=== PATIENT | female | born 1985 | race Caucasian/White ===

== ENCOUNTER 2017-02-11 07:57 | Inpatient (IN) | payer MEDICAID ==
[~2017-02-11] VITALS: Ht 154.9 cm; Wt 54.4 kg
--- NOTE | ~2017-02-11 | DS ---
PATIENT:NANCY MATTHEW :89 MEDICAL RECORD: [id number] DISCHARGE SUMMARY ADMISSION DATE: 02/11/17 DISCHARGE DATE: 02/13/17 CHIEF COMPLAINT: 1. Abdominal pain, perhaps due to endometriosis. 2. Ileus, resolved. HOSPITAL COURSE: The patient was admitted with abdominal pain. She underwent a small bowel follow-through. It was normal. I have advised the patient to see a recoating machine operator. I think that hysterectomy and bilateral salpingo-oophorectomies may be diagnostic as well as therapeutic in her case. She has had 3 children. She states she does not want to have any more children. I told her that I do not perform hysterectomies and that she would need to see a recoating machine operator for this. She is being dismissed home on Ultram for pain. For the typed portion of this note including past medical and surgical history, allergies, social history as well as current medications, please see the chart. PHYSICAL EXAMINATION: GENERAL: The patient does not appear acutely ill. She does appear chronically ill. The entire physical examination was performed in the presence of a female nurse. HEAD: External ears appear normal. EYES: Extraocular movements are intact. NECK: Trachea is midline. CHEST: No intercostal retractions. PULMONARY: Nonlabored, no stridor. ABDOMEN: Diffusely tender. Really unchanged from her admission status. EXTREMITIES: No peripheral cyanosis. INTEGUMENT: No rash, no ulcerations. BACK: No thoracic kyphosis. LYMPHATIC: No lymphangitic streaking of the exposed extremities. NEUROLOGIC: Nonfocal, no lethargy. The patient answers questions appropriately, moves all extremities well. IMPRESSION: Abdominal pain, perhaps due to endometriosis. PLAN: I would recommend the patient undergo a total abdominal hysterectomy despite her age. TRANSINT:[id number] Voice Confirmation ID: [id number] DOCUMENT ID: [id number] OLIVER ALCANTARA MD CC: [id number] DICTATION DATE: 02/13/171740 MIXER OPERATOR HOT METAL: 02/14/17 023 DIS IN 02/13/17 [facility] [address] [place] [address]
--- NOTE | ~2017-02-11 | HP ---
PATIENT: NANCY MATTHEW MEDICAL RECORD: [id number] ACCOUNT: [id number] LOCATION:D.MS Zhang : 89 ADMISSION DATE: 02/11/17 HISTORY AND PHYSICAL EXAMINATION Addendum DATE OF SERVICE: 02/11/2017 CHIEF COMPLAINT: Pain. HISTORY OF PRESENT ILLNESS: The patient has had numerous laparoscopies for endometriosis. She believes that she has endometriosis again and that this is causing a bowel obstruction. An NG tube was placed. I am going to obtain a small bowel follow through in the morning. Symptoms are severe. Palpation aggravates. Nothing alleviates. Her abdomen is only mildly distended. This is a history and physical addendum. For the typed portion of the history and physical, please see the typed portion in the chart. This will include the patient's past medical and surgical history, allergies, social history, as well as current medications. REVIEW OF SYSTEMS: Positive for pain. Positive for nausea and vomiting. No fever, no chills, no shortness of breath, no chest pain. Positive for anxiety. Review of systems is negative other than as is described above. PHYSICAL EXAMINATION: GENERAL: The patient does appear acutely ill. Also appears chronically ill. VITAL SIGNS: Reviewed. The entire physical examination was performed with the presence of a female nurse. HEAD: External ears appear normal. EYES: Extraocular movements are intact. NECK: Trachea is midline. CHEST: No intercostal retractions. PULMONARY: Nonlabored. No stridor. ABDOMEN: Diffusely tender. No peritonitis to percussion. EXTREMITIES: No peripheral cyanosis. INTEGUMENT: No rash, no ulcerations. PSYCHIATRIC: Anxious affect. NEUROLOGIC: Nonfocal, no lethargy. The patient answers questions appropriately. Moves all extremities well. BACK: No thoracic kyphosis. LYMPHATICS: No lymphangitic streaking of the exposed extremities. IMPRESSION: Abdominal pain, possibly due to an ileus or small-bowel obstruction. PLAN: Continue NG tube suction. Small bowel follow through, which may be diagnostic as well as therapeutic. TRANSINT:[id number] Voice Confirmation ID: [id number] DOCUMENT ID: [id number] HISTORY AND PHYSICAL [id number] NANCY MATTHEW OLIVER ALCANTARA MD CC: [id number] DICTATION DATE: 02/13/171735 JOURNAL ENTRY AUDIT CLERK: 02/13/17 1850 DIS IN 02/13/17 [facility] [address] [place] [address]
--- NOTE | ~2017-02-11 | PN ---
PATIENT:NANCY MATTHEW MEDICAL RECORD: [id number] LOCATION:D.[facility] Fel[facility] ADMISSION DATE: 02/11/17 PROGRESS NOTE DATE OF SERVICE: 02/12/2017 Addendum CHIEF COMPLAINT: Pain. For the typed portion of the progress note, please see the chart. The patient's pain persists. I have reviewed the small bowel follow through images. I have reviewed the x-ray report. She reports intense pain that is not improved. Her docent coordinator has been Dr. Devendra Mcdonald at [facility]. The patient states that she has requested a hysterectomy in the past. She has 3 children. She was told that she was too young for hysterectomy. She claims that she has had 14 laparoscopies for abdominal pelvic problems. I personally reviewed her x-rays. Palpation aggravates. Nothing alleviates. The entire physical examination was performed in the presence of a female nurse. She is very anxious today. For the past medical history, surgical history, allergies, current medications and social history, please see the typed portion of the chart. I want to discontinue the nasogastric tube and start her on a diet. PHYSICAL EXAMINATION: GENERAL: The patient does not appear acutely ill. She does appear chronically ill. The entire physical examination was performed in the presence of a female nurse. HEAD: External ears appear normal. EYES: Extraocular movements are intact. NECK: Trachea is midline. CHEST: No intercostal retractions. PULMONARY: Nonlabored, no stridor. ABDOMEN: Her abdominal examination from the and has been unchanged. Diffusely tender. Only mildly distended. No peritonitis to percussion. No Rovsing sign. No Garsia sign. EXTREMITIES: No peripheral cyanosis. INTEGUMENT: No rash and no ulcerations. PSYCHIATRIC: Anxious affect. NEUROLOGIC: Nonfocal, no lethargy. The patient answers questions appropriately, moves all extremities well. BACK: No thoracic kyphosis. LYMPHATIC: No lymphangitic streaking of the exposed extremities. IMPRESSION: Resolving ileus. PLAN: Discontinue the nasogastric tube. Start her on a diet. TRANSINT:[id number] Voice Confirmation ID: [id number] DOCUMENT ID: [id number] PROGRESS NOTE [id number] NANCY MATTHEW OLIVER ALCANTARA MD CC: [id number] DICTATION DATE: 02/13/171738 COUNSEL: 02/14/17220 DIS IN 02/13/17 [facility] [address] [place] [address]
[~2017-02-11 07:57] MED LIST: AMPICILLIN TRI500 MG PO; IBUPROFEN600 MG PO; VIBRAMYCIN 100100 MG PO; ZENCHENT FE TA1 EACH PO
[2017-02-11 08:42] LABS: HEMATOCRIT 41.3 % (36.0-48.0); HEMOGLOBIN 13.6 g/dL (12-16); MCH 30.4 pg (26.0-34.0); MCHC 32.9 g/dL (31.0-37.0); MCV 92.2 fL (80.0-100.0); MEAN PLATELET VOLUME 11.6 fL (7.4-10.4); PLATELET COUNT 262 10x3/uL (130-400); RBC 4.48 10x6/uL (4.00-5.40); RDW 13.5 % (11.5-14.5); WBC 27.7 10x3/uL (4.8-10.8)
[2017-02-11 08:52] LABS: ALBUMIN 5.3 g/dL (3.4-5.0); ANION GAP 22.8 mmol/L (8-16); BILIRUBIN - TOTAL 1.18 mg/dL (0.2-1.3); CALCIUM 9.8 mg/dL (8.5-10.1); CREATININE - SERUM 1.2 mg/dL (0.6-1.3); POTASSIUM - SERUM 3.8 mmol/L (3.5-5.1); PROTEIN - SERUM 8.6 g/dL (6.4-8.2)
[2017-02-11 09:01] LABS: LYMPHOCYTES 5 % (15-50); MONOCYTES 1 % (2-11); NEUTROPHILS 86 % (40-80); PLATELET ESTIMATE NORMAL
[2017-02-11 10:05] LABS: HCG URINE NEGATIVE (NEGATIVE)
[2017-02-11 10:09] LABS: APPEARANCE HAZY (CLEAR); BACTERIA FEW /hpf (NONE SEEN); BILIRUBIN NEGATIVE (NEGATIVE); COLOR YELLOW (YELLOW); GLUCOSE NEGATIVE (NEGATIVE); KETONE SMALL mg/dL (NEGATIVE); LEUKOCYTE ESTERASE TRACE (NEGATIVE); NITRITE NEGATIVE (NEGATIVE); PROTEIN NEGATIVE (NEGATIVE); RED CELLS - URINE OCC /hpf (0-5); SPECIFIC GRAVITY 1.025 (1.005-1.020); UROBILINOGEN NORMAL (NORMAL)
[2017-02-11 10:10] LABS: MUCUS >1+ /lpf (NONE SEEN); UDS - AMPHET POSITIVE QUAL (NEGATIVE); UDS - BARB NEGATIVE QUAL (NEGATIVE); UDS - BENZO NEGATIVE QUAL (NEGATIVE); UDS - COCAINE NEGATIVE QUAL (NEGATIVE); UDS - METH NEGATIVE QUAL (NEGATIVE); UDS - OPIATE NEGATIVE QUAL (NEGATIVE); UDS - PCP NEGATIVE QUAL (NEGATIVE); UDS - THC POSITIVE QUAL (NEGATIVE)
[2017-02-11 17:36] VITALS: BP 130/65; BMI 22.7
--- NOTE | 2017-02-11 19:00 | NUR ---
PATIENT IN BED WITH EYES CLOSED. RR EVEN AND UNLABORED. 0 S/S OF DISTRESS. NG TUBE TO RIGHT NARE ON LIS. IV TO LEFT WRIST S/L AND IV TO RIGHT FA PATENT WITH NO REDNESS OR SWELLING. PLEIX PULSE BOOTS OFF AT THIS TIME. SRX2. BED LOW. CALL LIGHT WITHIN REACH.
[2017-02-11 20:00] VITALS: BP 103/55
--- NOTE | 2017-02-11 21:10 | NUR ---
NIGHTTIME MED GIVEN. INITIATED DILAUDID SILK SCREEN PRINTER HELPER PER ORDER.
--- NOTE | 2017-02-11 23:30 | NUR ---
ZOFRAN GIVEN FOR NAUSEA.
[2017-02-12] VITALS: BP 96/48
[2017-02-12 04:00] VITALS: BP 77/45
[2017-02-12 05:44] LABS: BASOPHILS 0.2 % (0-2); IMMATURE GRANULOCYTES 0.3 % (0-5); LYMPHOCYTES 12.6 % (15-50); MCH 30.2 pg (26.0-34.0); MCHC 32.2 g/dL (31.0-37.0); MCV 93.8 fL (80.0-100.0); MEAN PLATELET VOLUME 11.5 fL (7.4-10.4); MONOCYTES 3.9 % (2-11); RDW 13.8 % (11.5-14.5)
[2017-02-12 05:45] LABS: HEMOGLOBIN 10.3 g/dL (12-16); PLATELET COUNT 197 10x3/uL (130-400); RBC 3.41 10x6/uL (4.00-5.40); WBC 17.6 10x3/uL (4.8-10.8)
[2017-02-12 06:02] LABS: ALKALINE PHOSPHATASE 48 U/L (46-116); ALT (SGPT) 16 U/L (10-68); BILIRUBIN - TOTAL 0.57 mg/dL (0.2-1.3); CALC OSMOLALITY 272 mosm/kg (275-300); CALCIUM 8.1 mg/dL (8.5-10.1); CHLORIDE - SERUM 107 mmol/L (98-107); GLUCOSE 89 mg/dL (74-106); MAGNESIUM - SERUM 2.3 mg/dL (1.8-2.4); PHOSPHOROUS 2.5 mg/dL (2.5-4.9); SODIUM 137 mmol/L (136-145); UREA NITROGEN 12 mg/dL (7-18)
[2017-02-12 06:03] LABS: ALBUMIN 2.3 g/dL (3.4-5.0); CARBON DIOXIDE 24.1 mmol/L (21.0-32.0); CREATININE - SERUM 0.8 mg/dL (0.6-1.3); PROTEIN - SERUM 5.7 g/dL (6.4-8.2); eGFR NON AFRICAN AMERICAN 90 mL/min (90-120)
--- NOTE | 2017-02-12 08:13 | NUR ---
A&O, DENIES NEEDS, BED LOWEST POSITION, LEFT FLOOR FOR GASTROGRAFFIN
[2017-02-12 09:29] VITALS: BP 86/42
--- NOTE | 2017-02-12 11:08 | NUR ---
COMPAINTS OF ABDOMINAL DISCOMFORT, WILL CONTINUE TO MONITOR
--- NOTE | 2017-02-12 11:40 | NUR ---
PT SITTING AT THE SIDE OF BED AT THIS TIME, COMPLAINTS OF PAIN OF A 7 ON A SCALE OF 1-10. INTERNATIONAL TRADE SPECIALIST IN USE. PT EXPRESSED NO OTHER NEEDS AT THIS TIME. BED IN LOW POSITION AND CALL LIGHT WITHIN REACH. WILL CONTINUE TO MONITOR.
[2017-02-12 12:46] VITALS: BP 88/47
[2017-02-12 16:29] VITALS: BP 109/57
--- NOTE | 2017-02-12 19:00 | NUR ---
PATIENT SITTING IN BED WATCING TV. HOB 30 DEGREES. AAOX4. RR EVEN AND UNLABORED. 0 S/S OF DISTRESS. STATES PAIN IS A 4/10. NG TUBE TO RIGHT NARE TO LIS. IV TO RIGHT FA PATENT AND IV TO LEFT WRIST S/L WITH NO REDNESS OR SWELLING. BOYFRIEND AT BEDSIDE. SRX2. BED LOW. CALL LIGHT WITHIN REACH.
[2017-02-12 20:00] VITALS: BP 98/59
--- NOTE | 2017-02-12 21:30 | NUR ---
NIGHTTIME MEDS GIVEN. NG TUBE REMOVED PER ORDER. NO OTHER NEEDS AT THIS TIME.
--- NOTE | 2017-02-13 01:10 | NUR ---
ZOFRAN GIVEN FOR NAUSEA. WILL REASSESS.
[2017-02-13 01:43] VITALS: BP 108/63
--- NOTE | 2017-02-13 04:00 | NUR ---
PATIENT SLEEPING WITH NO DISTRESS NOTED. CALL LIGHT WITHIN REACH.
[2017-02-13 06:20] VITALS: BP 94/42
--- NOTE | 2017-02-13 07:35 | NUR ---
PT AOX4 RESP EVEN AND NONLABORED PT DENIES NEEDS AT THIS TIME IV TO RIGHT FOREARM PATENT AND INTACT SRX2 BED IN LOWEST SETTING CALL LIGHT WITHIN REACH WILL CONTINUE TO MONITOR
--- NOTE | 2017-02-13 09:48 | NUR ---
Patient Name: NANCY MATTHEW Admission Status: ER Accout number: [id number] Admission Date: 02-11-2017 : 1985 Admission Diagnosis: Attending: LUCERO Current LOS: 2 Anticipated DC Date: 02-14-2017 Planned Disposition: Home Primary Insurance: MEDICAID [place] Discharge Planning Comments: CM met with patient to assess discharge planning/needs. Patient states her discharge plan is to return home where she lives with her parents. She states that she is safe to return there and denies any HH or any other services at this time. She stated that her parents will be driving her home when she discharges. CM will continue to follow and assist as needed with discharge planning/needs. PCP: [facility] ( PARENTS) [phone] - [phone] Cutting Room Supervisor: Chani Gaston * Is the patient Alert and Oriented? Yes 0 * How many steps to enter\exit or inside your home? 0 0 * PCP LISA 0 * Pharmacy [facility] * Preadmission Environment Home with Family 0 * ADLs Independent 0 * Equipment None 0 * List name and contact numbers for known caregivers / representatives who currently or will assist patient after discharge: NANCY ROMO (PARENTS) [phone] 0 * Community resources currently utilized None 0 * Additional services required to return to the preadmission environment? No 0 * Can the patient safely return to the preadmission environment? Yes 0 * Has this patient been hospitalized within the prior 30 days at any hospital? No 0 Grand Total: 0
[2017-02-13 10:15] VITALS: BP 103/55
[2017-02-13 11:41] VITALS: Ht 154.9 cm; Wt 54.4 kg
[2017-02-13 12:54] VITALS: BP 91/53
== END 2017-02-13 20:02 | disposition home or self-care (01) | DRG 390 ==
LOC: D.ER 07:57 → D.MS 14:13
PROVIDERS: Emergency Medicine; ADMIT Surgery
DX: K56.7 Ileus, unspecified (principal); F41.9 Anxiety disorder, unspecified; N80.0 Endometriosis of uterus

== ENCOUNTER 2017-11-20 11:17 | Emergency (ER) | payer MEDICAID ==
[2017-02-13 11:41] VITALS: BMI 22.6
== END 2017-11-20 12:35 | disposition home or self-care (01) ==
LOC: D.ER 11:17
DX: J01.90 Acute sinusitis, unspecified (principal); J20.9 Acute bronchitis, unspecified; F17.200 Nicotine dependence, unspecified, uncomplicated

== ENCOUNTER 2017-12-20 20:15 | Emergency (ER) | payer MEDICAID ==
[2017-02-13 11:41] VITALS: BMI 22.6
== END 2017-12-20 23:12 | disposition home or self-care (01) ==
LOC: D.ER 20:15
DX: J06.9 Acute upper respiratory infection, unspecified (principal); J02.9 Acute pharyngitis, unspecified; F17.200 Nicotine dependence, unspecified, uncomplicated

== ENCOUNTER 2018-07-26 14:05 | Emergency (ER) | payer MEDICAID ==
[~2018-07-26] VITALS: Ht 154.9 cm; Wt 52.3 kg
[2018-07-26 14:20] VITALS: Ht 154.9 cm; Wt 52.3 kg
[2018-07-26] MEDS ORDERED: DOXYCYCLINE HY100 M2 PO (15:28)
[2018-07-26] MEDS ORDERED: BACTROBAN NASAL1 GM NASAL (15:28)
[2018-07-26 16:32] VITALS: BP 128/87
== END 2018-07-26 16:32 | disposition home or self-care (01) ==
LOC: D.ER 14:05
DX: L02.512 Cutaneous abscess of left hand (principal); F17.200 Nicotine dependence, unspecified, uncomplicated